=== PATIENT | female | born 1985 | race Caucasian/White ===

== ENCOUNTER 2017-11-27 21:55 | Emergency (ER) | payer OTHER ==
--- NOTE | 2017-11-28 01:22 | EDM.PDOC ---
ED HPI GENERAL MEDICAL PROBLEM - General Chief Complaint: Respiratory Problem Stated Complaint: SOB Time Seen by Provider: 11/28/17 01:06 Source of Information: Reports: Patient, Family History Limitations: Reports: No Limitations - History of Present Illness INITIAL COMMENTS - FREE TEXT/NARRATIVE: The patient states that she has had sinus congestion and URI symptoms on and off for the past 2 years, and has had a cough productive of greenish sputum for about one month. For 2 months prior to that, the cough was dry. No recent fever. She was seen at an urgent care in [place] on 11/17/2017. She states that no tests were done, but that she was prescribed prednisone BID x 5 days, an albuterol MDI, and a Z-Abdulaziz, that she did not fill. She states that the prednisone and albuterol did not help. She states that she started taking an apah-atn-ypqaniy cough syrup last week, which also did not help, and today she took 2 doses of DayQuil. The patient states that she lives in [facility]. She believes that she is fully vaccinated. all over Pain Score (Numeric/FACES): 2 - Related Data Allergies Allergy/AdvReac Type Severity Reaction Status Date / Time No Known Allergies Allergy Verified 11/27/17 22:10 Home Meds: Home Meds Albuterol Sulfate [Proventil Hfa] 6.7 gm IH ASDIRECTED PRN 11/27/17 [History] Phenylephrine/Dm/Acetaminop/Gg [Daytime Severe Cold-Flu Liquid] 355 ml PO ASDIRECTED PRN 11/27/17 [History] Past Medical History - Past Surgical History HEENT Surgical History: Reports: Oral Surgery ([place] teeth extracted), Tonsillectomy Social & Family History - Family History Family Medical History: Noncontributory - Tobacco Use Smoking Status *Q: Former Smoker Years of Tobacco use: 15 Packs/Tins Daily: 0.5 Month/Year Tobacco Last Used: Quit 2009 - Caffeine Use Caffeine Use: Reports: Soda - Alcohol Use Alcohol Use History: Yes Alcohol Use Frequency: Socially - Recreational Drug Use Recreational Drug Use: Yes Drug Use in Last 12 Months: Yes Recreational Drug Type: Reports: Marijuana/Hashish (smokes occasionaly) - Living Situation & Occupation Living situation: Reports: , with Family Occupation: Employed ([employer]) ED ROS GENERAL - Review of Systems Review Of Systems: ROS reveals no pertinent complaints other than HPI. ED EXAM, GENERAL - Physical Exam Exam: See Below Exam Limited By: No Limitations General Appearance: Alert, WD/WN, No Apparent Distress Eye Exam: Bilateral Eye: Normal Inspection Ears: Normal External Exam, Hearing Grossly Normal Nose: Normal Inspection, No Blood Throat/Mouth: Normal Inspection, Normal Lips, Normal Voice, No Airway Compromise Head: Atraumatic, Normocephalic Neck: Normal Inspection, Full Range of Motion Respiratory/Chest: No Respiratory Distress, No Accessory Muscle Use, Wheezing ( few, scattered). No: Crackles, Rhonchi, Prolonged Expiration Cardiovascular: Normal Peripheral Pulses, Regular Rate, Rhythm, No Edema, No Gallop, No JVD, No Murmur, No Rub Peripheral Pulses: 4+: Radial (L), Radial (R) GI/Abdominal: Normal Bowel Sounds, Soft, Non-Tender, No Organomegaly, No Distention, No Abnormal Bruit, No Mass (Female) Exam: Deferred Rectal (Female) Exam: Deferred Back Exam: Normal Inspection, Full Range of Motion, NT Extremities: Normal Inspection, Normal Range of Motion, No Pedal Edema, Normal Capillary Refill Neurological: Alert, Oriented, Normal Cognition, No Motor/Sensory Deficits Psychiatric: Normal Affect Skin Exam: Warm, Dry, Intact, Normal Color, No Rash Course - Vital Signs Last Recorded V/S: Last Vital Signs Temp 37.2 C 11/27/17 22:04 Pulse 94 11/27/17 22:04 Resp 21 H 11/27/17 22:04 BP 118/95 H 11/27/17 22:04 Pulse Ox 96 11/28/17 01:35 - Orders/Labs/Meds Labs: Laboratory Tests 11/28/17 11/28/17 Range/Units 01:35 01:35 WBC 17.52 H (3.98-10.04) K/mm3 RBC 4.84 (3.98-5.22) M/mm3 Hgb 14.4 (11.2-15.7) gm/L Hct 42.7 (34.1-44.9) % MCV 88.2 (79.4-94.8) fl MCH 29.8 (25.6-32.2) pg MCHC 33.7 (32.2-35.5) g/dl RDW Std Deviation 42.9 (36.4-46.3) fL Plt Count 300 (182-369) K/mm3 MPV 11.2 (9.4-12.3) fl Neutrophils % (Manual) 74 H (40-60) % Band Neutrophils % 0 (0-10) % Lymphocytes % (Manual) 13 L (20-40) % Atypical Lymphs % 1 % Monocytes % (Manual) 9 (2-10) % Eosinophils % (Manual) 3 (0.7-5.8) % Basophils % (Manual) 0 L (0.1-1.2) Toxic Granulation 1+ slight Dohle Bodies Platelet Estimate Adequate Plt Morphology Comment Normal RBC Morph Comment Normal Sodium 138 (136-145) mEq/L Potassium 3.9 (3.5-5.1) mEq/L Chloride 101 (98-107) mEq/L Carbon Dioxide 25 (21-32) mEq/L Anion Gap 15.9 H (5-15) BUN 11 (7-18) mg/dL Creatinine 1.0 (0.55-1.02) mg/dL Est Cr Clr Drug Dosing 62.69 mL/min Estimated GFR (MDRD) > 60 (>60) mL/min BUN/Creatinine Ratio 11.0 L (14-18) Glucose 111 H (74-106) mg/dL Calcium 9.5 (8.5-10.1) mg/dL Total Bilirubin 0.9 (0.2-1.0) mg/dL AST 17 (15-37) U/L ALT 23 (14-59) U/L Alkaline Phosphatase 95 (46-116) U/L C-Reactive Protein 3.7 H* (<1.0) mg/dL Total Protein 7.8 (6.4-8.2) g/dl Albumin 3.8 (3.4-5.0) g/dl Globulin 4.0 gm/dL Albumin/Globulin Ratio 1.0 (1-2) Meds: Medications Discontinued Medications Generic Name Dose Route Start Last Admin Trade Name Freq PRN Reason Stop Dose Admin Acetaminophen 650 mg 11/28/17 02:18 11/28/17 02:22 Tylenol PO 11/28/17 02:19 650 mg NOW ONE Administration Albuterol/Ipratropium 3 ml 11/28/17 01:23 11/28/17 01:33 Duoneb 3.0-0.5 Mg/3 Ml NEB 11/28/17 01:24 3 ml ONETIME ONE Administration - Re-Assessments/Exams Free Text/Narrative Re-Assessment/Exam: 11/28/17 01:20 The patient reports a persistent cough for the past 3 months, usually dry, but productive of greenish sputum for the past 1 month, along with sinus congestion and URI symptoms for the past 2 years. She states that the wheezing and lung sounds are worse when she is supine, and that they inhibit her sleep. That is consistent with bronchitis, however, while the patient does have some scattered wheezes on auscultation, I do not find that they are any worse when she is supine. It is therefore possible that she has underlying asthma, exacerbated by any number of things, including living in [place] or her smoking. I don't know that blood work will be of much use tonight, however, since she has had no prior evaluation, I ordered a CBC, CMP and CRP. I have ordered a chest radiograph to make sure that there is no infectious process going on, and I will have the respiratory therapist check her peak flow before and after a DuoNeb. 11/28/17 01:47 2-view chest radiograph reviewed. Cardiac silhouette is within normal limits. No pulmonary vascular congestion. No pleural effusions. No focal infiltrate. No pneumothorax. There is hyperinflation, and mild bilateral diaphragmatic flattening, consistent with, although not diagnostic of, asthma exacerbation. Formal read per the Radiologist pending. 11/28/17 03:21 The patient's baseline peak flow was 250, in the red zone. Her post-DuoNeb treatment PF hang to 280, in the yellow zone. Test results discussed at length with the patient. The hyperinflation on her chest radiograph, lack of increase in wheezing when supine, and improvement in peak flow following a DuoNeb all suggest that the patient has underlying asthma. The only way to be sure, however, is to undergo a pulmonary function test. The patient states that she will be returning to [place] tomorrow, at which time she can talk to her PCP about getting a PFT. In the meantime, however , I am strongly recommending that she quit smoking. The patient may also have a viral URI, responsible for her sinus congestion and postnasal drip, although it is possible that the patient has allergic rhinitis. The patient does not have dark rings under her eyes, so this is less likely. The patient was provided with a peak flow meter, which I explained why she would want to have one, as well as a space chamber, which I recommend she use anytime she uses a MDI. Departure - Departure Time of Disposition: 03:23 Disposition: Home, Self-Care 01 Condition: Good Clinical Impression: Asthma, Viral URI with cough - Discharge Information Instructions: Asthma, Adult Referrals: PCP,Not In Area [Primary Care Provider] - Forms: ED Department Discharge Additional Instructions: You were seen in the emergency room for 2 years of sinus and nasal congestion, and 3 months of cough. Workup in the ER included blood work and a chest x-ray. Additionally, your peak flow was measured before and after you received a DuoNeb. On examination, you had wheezes in your lungs that did not get worse when you were lying down, your chest x-ray showed hyperinflation, and your peak flow improved following a DuoNeb. All of these are suggestive of, although not diagnostic of, asthma. We recommend that when you return to [place], you talk to your doctor about getting a pulmonary function test to determine if you have asthma or not. In the meantime, you may use your albuterol inhaler as often as needed to treat shortness of breath with wheezing, with or without a cough. If you need to use your albuterol more often than every 4 hours, you need to be seen by a doctor. Make sure that you use your space chamber every time you use your metered dose inhaler. We STRONGLY recommend that you quit smoking. You have been given a peak flow meter. Learn to use this, and get to know what your normal peak flows are. If you are having shortness of breath and your peak flow is in the yellow or red zone, this is likely due to an asthma exacerbation , and you should use your albuterol. If you have shortness of breath and your peak flow is in the green zone, this is not asthma, and you should take albuterol. You may also be suffering from a viral upper respiratory infection. Unfortunately, there are no medicines to treat a viral infection - it will have to run its course. As discussed, we do not recommend that you take any ihgx-slr-fkcnryl cough or cold remedies, as they simply do not work.
[2017-11-28] MEDS ORDERED: Albuterol/Ipratropium 3.0-0.5 MG/3 ML Neb Soln NEB ONE (01:23)
[2017-11-28] MEDS ORDERED: Acetaminophen 325 MG Tab PO ONE (02:18)
--- NOTE | 2017-11-28 14:51 | CR ---
Chest: Two views of the chest were obtained. Comparison: No previous study. Heart size and mediastinum are normal. Lungs are clear. Bony structures are unremarkable. Impression: 1. Nothing acute is seen on two-view chest x-ray. Diagnostic code #1
== END 2017-11-28 03:41 | disposition home or self-care (01) ==
LOC: JD.ED 21:55
DX: J06.9 Acute upper respiratory infection, unspecified (principal); J45.909 Unspecified asthma, uncomplicated; Z87.891 Personal history of nicotine dependence
CPT/HCPCS: 36415; 71046; 80053; 85007; 85027; 86140; 94640; 99285; A9270; 99283